=== PATIENT | female | born 1995 | race Caucasian/White ===

== ENCOUNTER 2019-01-29 01:43 | Emergency (ER) | payer OTHER ==
[~2019-01-29] VITALS: Ht 162.6 cm; Wt 79.4 kg
[~2019-01-29 01:43] MED LIST: NITR100C19; [UNRECOGNIZED DRUG - CODE]
[2019-01-29 01:58] VITALS: BP 177/123
--- NOTE | 2019-01-29 01:58 | NUR ---
23 Y/O FEMALE C/O NAUSEA/VOMITING X4 TIMES TODAY (01/29/19). PATIENT STATES THAT SHE HAS NO PAIN, "BUT MORE DISCOMFORT FROM THE VOMITING". PER PT. SHE STARTED VOMITING AT 0100 TODAY AFTER WAKING UP TO USE THE BATHROOM. PT. ALSO SAYS SHE HAS DIARRHEA. NO COUGH NOTED OR FEVER OR CHILLS. ERMD MADE AWARE OF STATUS. SIDE RAILSX1. WILL CONTINUE TO MONITOR. PMH: HYPERTENSION; MIGRAINES RX: LABETALOL; NIFEDIPINE;BUTALBITAL NKDA
--- NOTE | 2019-01-29 02:07 | NUR ---
ERMD EVALUATING PATIENT AT BEDSIDE.
[2019-01-29] MEDS ORDERED: ONDANSETRON 4 MG TAB PO ONE (02:10)
[2019-01-29 02:50] VITALS: BP 139/89
== END 2019-01-29 02:50 | disposition home or self-care (01) ==
LOC: MED 01:43
DX: A08.4 Viral intestinal infection, unspecified (principal); I10 Essential (primary) hypertension; G43.909 Migraine, unspecified, not intractable, without status migrainosus; Z79.899 Other long term (current) drug therapy
CPT/HCPCS: 99283; Q0162

== ENCOUNTER 2020-08-31 07:39 | Emergency (ER) | payer OTHER ==
[~2020-08-31] VITALS: Ht 162.6 cm; Wt 84.4 kg
[2020-08-31 07:44] VITALS: BP 176/120
[2020-08-31] MEDS ORDERED: NAPR-54 PO (08:11)
[2020-08-31] MEDS ORDERED: CIPR7.5S OT (08:11)
[2020-08-31 08:25] VITALS: BP 188/129
== END 2020-08-31 08:25 | disposition home or self-care (01) ==
LOC: MED 07:39
DX: H60.502 Unspecified acute noninfective otitis externa, left ear (principal); I10 Essential (primary) hypertension; Z79.899 Other long term (current) drug therapy; Z98.890 Other specified postprocedural states
CPT/HCPCS: 99283

== ENCOUNTER 2020-10-29 12:53 | Emergency (ER) | payer OTHER ==
[~2020-10-29] VITALS: Ht 162.6 cm; Wt 84.4 kg
[~2020-10-29 12:53] MED LIST changes: +CIPR7.5S OT; +NAPR-54 PO
[2020-10-29 13:15] VITALS: BP 172/128
--- NOTE | 2020-10-29 13:18 | NUR ---
PT SENT TO ER LOBBY TO WAIT FOR AVAILABLE BED.
[2020-10-29] MEDS ORDERED: IBUP-2213 PO (13:31)
[2020-10-29] MEDS ORDERED: AMOX-999 PO (13:31)
[2020-10-29] MEDS ORDERED: CIPR7.5S OT (13:31)
--- NOTE | 2020-10-29 13:43 | NUR ---
Patient discharged with v/s stable. Written and verbal after care instructions given and explained. Patient alert, oriented and verbalized understanding of instructions. Ambulatory with steady gait. All questions addressed prior to discharge. ID band removed. Patient advised to follow up with PMD. Rx of Augmentin, Ciprofloxacin and Ibuprofen given. Patient educated on indication of medication including possible reaction and side effects. Opportunity to ask questions provided and answered.
== END 2020-10-29 13:43 | disposition home or self-care (01) ==
LOC: MED 12:53
DX: H60.502 Unspecified acute noninfective otitis externa, left ear (principal); I10 Essential (primary) hypertension; Z79.899 Other long term (current) drug therapy
CPT/HCPCS: 99283

== ENCOUNTER 2021-03-14 17:34 | Emergency (ER) | payer OTHER, SELFPAY ==
[~2021-03-14] VITALS: Ht 162.6 cm; Wt 76.7 kg
[~2021-03-14 17:34] MED LIST changes: +AMOX-999 PO; +IBUP-2213 PO
[2021-03-14 17:52] VITALS: BP 176/116
[2021-03-14] MEDS ORDERED: ACETAMINOPHEN EXTRA STRENGTH 500 MG TAB PO ONE (18:30)
[2021-03-14] MEDS ORDERED: ONDANSETRON 4 MG ODT PO ONE (18:30)
--- NOTE | 2021-03-14 19:26 | NUR ---
25 Y/O FEMALE C/O FEVER STARTED TODAY WITH SORE THROAT. LUNG SOUNDS CLEAR. COUGH NOTED. PT TO AWAIT IN TENT MEDHX: HTN NKA
--- NOTE | 2021-03-14 19:29 | NUR ---
SWABS COLLECTED AND DROPPED OFF AT LAB
[2021-03-14] MEDS ORDERED: TAM75 PO (20:26)
[2021-03-14] MEDS ORDERED: ACET-9882 PO (20:26)
[2021-03-14] MEDS ORDERED: NITR100C7 PO (20:26)
[2021-03-14] MEDS ORDERED: PROM118S5 PO (20:26)
--- NOTE | 2021-03-14 20:35 | NUR ---
ALL RESULTS BACK AND NOTED BY PA AND FOR D/C
[2021-03-14 20:55] VITALS: BP 137/98
--- NOTE | 2021-03-14 20:55 | NUR ---
Patient discharged with v/s stable. Written and verbal after care instructions given and explained. Patient alert, oriented and verbalized understanding of instructions. Ambulatory with steady gait. All questions addressed prior to discharge. ID band removed. Patient advised to follow up with PMD. Rx of ACETAMINOPHEN,MACROBID,PROMETHAZINE DM,TANIFLU, given. Patient educated on indication of medication including possible reaction and side effects. Opportunity to ask questions provided and answered.
== END 2021-03-14 20:55 | disposition home or self-care (01) ==
LOC: MED 17:34
DX: B34.9 Viral infection, unspecified (principal); Z20.822 Contact with and (suspected) exposure to COVID-19; N39.0 Urinary tract infection, site not specified; M79.10 Myalgia, unspecified site; R50.9 Fever, unspecified; J02.9 Acute pharyngitis, unspecified; I10 Essential (primary) hypertension; Z79.899 Other long term (current) drug therapy
CPT/HCPCS: 81002; 81025; 87086; 87426; 99283; Q0162; U0003

== ENCOUNTER 2022-02-21 16:12 | Emergency (ER) | payer OTHER ==
[~2022-02-21] VITALS: Ht 162.6 cm; Wt 85.9 kg
[~2022-02-21 16:12] MED LIST changes: +ACET-9882 PO; +NITR100C7 PO; +PROM118S5 PO; +TAM75 PO
[2022-02-21 16:18] VITALS: BP 172/117
--- NOTE | 2022-02-21 16:24 | NUR ---
BIB SELF C/O LUMP LEFT BREAST X 2 DAYS. DENIES N/V/D; SKIN IS PINK/WARM/DRY; AAOX4 WITH EVEN AND STEADY GAIT; LUNGS CLEAR BL; HR EVEN AND REGULAR; PT DENIES ANY FEVER, CP, SOB, OR COUGH AT THIS TIME; PATIENT STATES PAIN OF 6/10 AT THIS TIME.
[2022-02-21] MEDS ORDERED: IBUPROFEN 600 MG TAB PO ONE (17:00)
[2022-02-21] MEDS ORDERED: LIDOCAINE 1% 500 MG/ 50 ML VIAL INJ ONE (18:10)
[2022-02-21] MEDS ORDERED: HYDROcodone/APAP 5/325 MG 1 TAB TAB PO ONE (18:10)
[2022-02-21] MEDS ORDERED: IBUPROFEN 600 MG TAB ONE (18:18)
[2022-02-21] MEDS ORDERED: LIDOCAINE MPF 1% 10 ML ONE (18:22)
[2022-02-21] MEDS ORDERED: CEPH-588 PO (19:18)
[2022-02-21] MEDS ORDERED: ACET-10509 PO (19:18)
[2022-02-21] MEDS ORDERED: SULF-59 PO (19:18)
[2022-02-21] MEDS ORDERED: IBUP-2213 PO (19:18)
[2022-02-21 19:36] VITALS: BP 172/117
--- NOTE | 2022-02-21 19:36 | NUR ---
Patient discharged with v/s stable. Written and verbal after care instructions given and explained. Patient alert, oriented and verbalized understanding of instructions. Ambulatory with steady gait. All questions addressed prior to discharge. ID band removed. Patient advised to follow up with PMD. Rx of TYLENOL, KEFLEX, IBUPROFEN, BACTRIM given. Patient educated on indication of medication including possible reaction and side effects. Opportunity to ask questions provided and answered.
== END 2022-02-21 19:36 | disposition home or self-care (01) ==
LOC: MED 16:12
DX: N61.1 Abscess of the breast and nipple (principal); I10 Essential (primary) hypertension; Z79.899 Other long term (current) drug therapy
CPT/HCPCS: 10060; 76641; 99284; J2001; Q0092

== ENCOUNTER 2022-02-23 15:46 | Emergency (ER) | payer OTHER ==
[~2022-02-23] VITALS: Ht 162.6 cm; Wt 85.7 kg
[~2022-02-23 15:46] MED LIST changes: +ACET-10509 PO; +CEPH-588 PO; +SULF-59 PO
[2022-02-23 15:50] VITALS: BP 165/101
--- NOTE | 2022-02-23 15:54 | NUR ---
BIB SELF FOR WOUND CHECK. PT HAD I&D L BRESAT 2 DAYS AGO. 06/04 PAIN. PMH: HTN
--- NOTE | 2022-02-23 18:38 | NUR ---
Female Internist accompanied female patient for breast abscess wound check
[2022-02-23 18:55] VITALS: BP 110/74
--- NOTE | 2022-02-23 18:55 | NUR ---
Patient discharged with v/s stable. Written and verbal after care instructions ABOUT WOUND CARE given and explained. Patient verbalized understanding. Ambulatory with steady gait. All questions addressed prior to discharge. Advised to follow up with PMD.
== END 2022-02-23 18:55 | disposition home or self-care (01) ==
LOC: MED 15:46
DX: N61.1 Abscess of the breast and nipple (principal); I10 Essential (primary) hypertension; Z79.899 Other long term (current) drug therapy
CPT/HCPCS: 99281

== ENCOUNTER 2022-09-12 08:45 | Emergency (ER) | payer OTHER ==
[~2022-09-12] VITALS: Ht 162.6 cm; Wt 87.5 kg
[2022-09-12 08:49] VITALS: BP 167/113
--- NOTE | 2022-09-12 09:22 | NUR ---
PATIENT PRESENTS TO ED WITH ABSCESS UNDER LEFT BREAST AREA. PT STATES SHE HAS HAD ABSCESS FOR TWO DAYS. DENIES N/V/D; SKIN IS PINK/WARM/DRY; AAOX4 WITH EVEN AND STEADY GAIT; LUNGS CLEAR BL; HR EVEN AND REGULAR; PT DENIES ANY FEVER, CP, SOB, OR COUGH AT THIS TIME; PATIENT STATES PAIN OF 0/10 AT THIS TIME; VSS; PATIENT POSITIONED FOR COMFORT; HOB ELEVATED; BEDRAILS UP X2; BED DOWN. ER MD MADE AWARE OF PT STATUS. PT AWAITING TO BE SEEN BY PROVIDER.
--- NOTE | 2022-09-12 10:00 | NUR ---
Pt seen by provider. Set up pts room for absecess fluid removal per providers orders.
[2022-09-12] MEDS ORDERED: CEPH-588 PO (10:26)
--- NOTE | 2022-09-12 10:28 | NUR ---
Pt was treated by provider. Absecess drained and cleaned by provider. Non adherant dressing applied. Pt tolerated well. Pt was advised to return to the ER for checkup of area. Pt has been medicated per provider orders. Will monitor pt for adverse reaction to Anitbiotic.
[2022-09-12] MEDS ORDERED: cephALEXin 500 MG CAP PO ONE (10:30)
--- NOTE | 2022-09-12 10:39 | NUR ---
Patient discharged with v/s stable. Written and verbal after care instructions given and explained. Patient verbalized understanding. Ambulatory with steady gait. All questions addressed prior to discharge. Advised to follow up with PMD.
[2022-09-12 10:40] VITALS: BP 166/143
--- NOTE | 2022-09-12 10:58 | NUR ---
The patient's care was reviewed and supervised by ED Agency Nurse 9, RN, RN.
== END 2022-09-12 10:51 | disposition home or self-care (01) ==
LOC: MED 08:45
DX: N61.1 Abscess of the breast and nipple (principal); I10 Essential (primary) hypertension; Z79.899 Other long term (current) drug therapy
CPT/HCPCS: 99284

== ENCOUNTER 2022-09-14 16:35 | Emergency (ER) | payer OTHER ==
[~2022-09-14] VITALS: Ht 160 cm; Wt 87.1 kg
--- NOTE | 2022-09-14 17:52 | NUR ---
Reba [email or web address] in [facility] - 09/14/22 at 1755 by [facility]SEP PT AMB TO BED 3
[2022-09-14 17:58] VITALS: BP 197/114
--- NOTE | 2022-09-14 18:56 | NUR ---
PT HERE FOR RECHECK OF CELLULITES UNDER THE LEFT BREAST. PT STATES THERE HAS BEEN NO SIGNS OF INFECTION. PT STATES SHE HAS KEPT AREA CLEAN DRY AND INTACT. PT VITALS RECORDED AND WITH IN NORMAL LIMITS.
--- NOTE | 2022-09-14 18:58 | NUR ---
PLACED NON ADHERANT DRESSING OVER WOUND AREA. SECURED WITH TAPE. PER PROVIDERS ORDERS.
[2022-09-14 18:59] VITALS: BP 197/114
== END 2022-09-14 18:59 | disposition home or self-care (01) ==
LOC: MED 16:35
DX: N61.1 Abscess of the breast and nipple (principal); I10 Essential (primary) hypertension; Z79.899 Other long term (current) drug therapy
CPT/HCPCS: 99281

== ENCOUNTER 2022-12-29 18:28 | Emergency (ER) | payer OTHER ==
[~2022-12-29] VITALS: Ht 162.6 cm; Wt 87.1 kg
[2022-12-29 18:37] VITALS: BP 176/116; PULSE 128; RESP 20; TEMP 102.1; O2SAT 99
[2022-12-29] MEDS: IBUPROFEN 800 MG TAB PO ONE (19:09)
[2022-12-29 19:39] LABS: FLU A ANTIGEN negative (NEGATIVE); FLU B ANTIGEN NEGATIVE (NEGATIVE)
[2022-12-29] MEDS: NACL 0.9% 1,000 ML IV ONE (19:55)
[2022-12-29] MEDS: ONDANSETRON 4 MG/2 ML VIAL IVP ONE (20:22)
[2022-12-29 21:56] VITALS: BP 144/72; PULSE 88; RESP 16; TEMP 99.1; O2SAT 99
== END 2022-12-29 21:56 | disposition home or self-care (01) ==
LOC: MED 18:28
DX: B34.9 Viral infection, unspecified (principal); R11.2 Nausea with vomiting, unspecified; I10 Essential (primary) hypertension; Z79.899 Other long term (current) drug therapy; Z20.822 Contact with and (suspected) exposure to COVID-19
CPT/HCPCS: 81002; 81025; 87426; 87804; 93005; 96361; 96374; 99284; J2405; J7030

== ENCOUNTER 2023-04-17 13:01 | Emergency (ER) | payer OTHER ==
[~2023-04-17] VITALS: Ht 162.6 cm; Wt 88.9 kg
[2023-04-17 13:07] VITALS: BP 178/113; PULSE 122; RESP 16; TEMP 98.8; O2SAT 99
[2023-04-17] MEDS ORDERED: KETOROLAC 60 MG/2 ML VIAL IM ONE (16:35)
[2023-04-17] MEDS ORDERED: IBUP-2213 PO (16:46)
[2023-04-17] MEDS ORDERED: AMOX1TAB8 PO (16:46)
[2023-04-17 16:58] VITALS: O2SAT 99
[2023-04-17 17:25] VITALS: BP 164/102; PULSE 101; RESP 16; TEMP 98.8
== END 2023-04-17 17:32 | disposition home or self-care (01) ==
LOC: MED 13:01
DX: S60.512A Abrasion of left hand, initial encounter (principal); S60.511A Abrasion of right hand, initial encounter; I10 Essential (primary) hypertension; Z98.890 Other specified postprocedural states; Z79.899 Other long term (current) drug therapy; Z79.2 Long term (current) use of antibiotics; Z79.1 Long term (current) use of non-steroidal anti-inflammatories (NSAID); W55.01XA Bitten by cat, initial encounter; Y93.89 Activity, other specified; Y92.89 Other specified places as the place of occurrence of the external cause; Y99.8 Other external cause status
CPT/HCPCS: 96372; 99283; J1885

== ENCOUNTER 2023-07-17 20:18 | Emergency (ER) | payer OTHER ==
[~2023-07-17] VITALS: Ht 162.6 cm; Wt 86.2 kg
[~2023-07-17 20:18] MED LIST changes: +AMOX1TAB8 PO; +NAPR-337 PO; -NAPR-54 PO
[2023-07-17 20:54] VITALS: BP 149/86; PULSE 105; RESP 20; TEMP 98; O2SAT 98
[2023-07-17 23:38] LABS: BASOPHILS # (AUTO) 0.1 K/uL (0.00-0.22); BASOPHILS % (AUTO) 0.5 % (0.0-2.0); EOSINOPHILS # (AUTO) 0.3 K/uL (0-0.4); EOSINOPHILS % (AUTO) 2.4 % (0.0-4.0); HEMATOCRIT 38.4 % (36-48); HEMOGLOBIN 13.4 g/dL (12.0-16.0); LYMPHOCYTES # (AUTO) 4.9 K/uL (2.5-16.5); MEAN CORPUSCULAR HEMOGLOBIN 29 pg (27-31); MEAN CORPUSCULAR HGB CONC 35 g/dL (33-37); MEAN CORPUSCULAR VOLUME 81.9 fL (80-94); MONOCYTES # (AUTO) 0.9 K/uL (0.8-1.0); MONOCYTES % (AUTO) 7.8 % (1.7-9.3); NEUTROPHILS # (AUTO) 5.3 K/uL (1.8-7.7); NEUTROPHILS % (AUTO) 46.3 % (42.2-75.2); PLATELET COUNT (AUTO) 255 K/uL (140-450); RED BLOOD CELL COUNT(AUTO) 4.68 MIL/uL (4.20-5.40); WHITE BLOOD COUNT (AUTO) 11.4 K/uL (4.8-10.8)
[2023-07-17 23:55] LABS: ALBUMIN 3.5 g/dL (3.4-5.0); ANION GAP 12.3 (8-16); CALCIUM 8.7 mg/dL (8.5-10.1); CARBON DIOXIDE 28.8 mmol/L (21-32); CREATININE 0.7 mg/dL (0.6-1.3); POTASSIUM 3.1 mmol/L (3.5-5.1); TOTAL BILIRUBIN 0.4 mg/dL (0.0-1.0); TOTAL PROTEIN, SERUM 7.8 g/dL (6.4-8.2)
[2023-07-18] MEDS: POTASSIUM CHLORIDE 10 MEQ TABER PO ONE (00:49)
[2023-07-18 01:04] VITALS: BP 138/79; PULSE 90; RESP 20; TEMP 98; O2SAT 98
== END 2023-07-18 01:04 | disposition home or self-care (01) ==
LOC: MED 20:18
DX: R60.0 Localized edema (principal); E87.6 Hypokalemia; I10 Essential (primary) hypertension; F90.9 Attention-deficit hyperactivity disorder, unspecified type; Z79.899 Other long term (current) drug therapy
CPT/HCPCS: 36415; 80053; 85025; 99283

== ENCOUNTER 2023-10-31 20:19 | Emergency (ER) | payer OTHER ==
[~2023-10-31] VITALS: Ht 162.6 cm; Wt 91.2 kg
[~2023-10-31 20:19] MED LIST changes: -NITR100C19; +[UNRECOGNIZED DRUG - CODE]
[2023-10-31 20:48] VITALS: BP 119/72; PULSE 108; RESP 18; TEMP 98.2; O2SAT 98
[2023-10-31] MEDS: ONDANSETRON 4 MG ODT PO ONE (21:50)
[2023-10-31 22:06] LABS: BASOPHILS % (AUTO) 0.4 % (0.0-2.0); EOSINOPHILS # (AUTO) 0.1 K/uL (0-0.4); EOSINOPHILS % (AUTO) 1.5 % (0.0-4.0); LYMPHOCYTES # (AUTO) 1.9 K/uL (2.5-16.5); LYMPHOCYTES % (AUTO) 26.7 % (20.5-51.1); MEAN CORPUSCULAR HEMOGLOBIN 28 pg (27-31); MEAN CORPUSCULAR HGB CONC 34 g/dL (33-37); MONOCYTES # (AUTO) 0.7 K/uL (0.8-1.0); MONOCYTES % (AUTO) 9.3 % (1.7-9.3); NEUTROPHILS # (AUTO) 4.4 K/uL (1.8-7.7); NEUTROPHILS % (AUTO) 62.1 % (42.2-75.2); PLATELET COUNT (AUTO) 195 K/uL (140-450); RED BLOOD CELL COUNT(AUTO) 4.69 MIL/uL (4.20-5.40); RED CELL DISTRIBUTION WIDTH 14.6 % (11.6-13.7); WHITE BLOOD COUNT (AUTO) 7.1 K/uL (4.8-10.8)
[2023-10-31 22:08] VITALS: O2SAT 98
[2023-10-31 22:38] LABS: FLU A ANTIGEN negative (NEGATIVE); FLU B ANTIGEN NEGATIVE (NEGATIVE)
[2023-10-31 22:39] LABS: ANION GAP 9.8 (8-16); CREATININE 1.3 mg/dL (0.6-1.3)
[2023-10-31 22:53] LABS: POTASSIUM 2.8 mmol/L (3.5-5.1)
[2023-10-31] MEDS: POTASSIUM CHLORIDE 10 MEQ TABER PO ONE (23:35)
[2023-10-31 23:50] VITALS: BP 103/55; PULSE 89; RESP 21; TEMP 98.4; O2SAT 97
== END 2023-10-31 23:47 | disposition home or self-care (01) ==
LOC: MED 20:19
DX: J06.9 Acute upper respiratory infection, unspecified (principal); B97.89 Other viral agents as the cause of diseases classified elsewhere; E87.6 Hypokalemia; Z20.822 Contact with and (suspected) exposure to COVID-19; I10 Essential (primary) hypertension; Z79.1 Long term (current) use of non-steroidal anti-inflammatories (NSAID); Z79.2 Long term (current) use of antibiotics; Z79.899 Other long term (current) drug therapy
CPT/HCPCS: 36415; 71045; 80048; 81025; 82948; 84484; 85025; 87426; 87804; 93005; 99285; Q0092; Q0162